=== PATIENT | male | born 1935 | race Caucasian/White ===

== ENCOUNTER → 2019-06-26 | Outpatient (CLI) | payer MEDICARE ==
[2019-06-29 16:09] LABS: ALBUM 3.3 g/dL (2.9-4.4); ALPHA 1 0.2 g/dL (0.0-0.4); BETA 1.2 g/dL (0.7-1.3); GAMMA 0.8 g/dL (0.4-1.8); PROTEIN TOTAL 6.5 g/dL (6.0-8.5)
[2019-06-29 18:09] LABS: ANA INTERP Negative (.)
== END | disposition home or self-care (01) ==
LOC: LAB 11:13
PROVIDERS: ATTEND Psychiatry & Neurology Neurology with Special Qualifications in Child Neurology
DX: G30.1 Alzheimer's disease with late onset (principal); G62.89 Other specified polyneuropathies; R29.898 Other symptoms and signs involving the musculoskeletal system; R26.9 Unspecified abnormalities of gait and mobility; R79.89 Other specified abnormal findings of blood chemistry
CPT/HCPCS: 36415; 82607; 82746; 82947; 84165; 84443; 85651; 86038

== ENCOUNTER → 2019-07-25 | Outpatient (CLI) | payer MEDICARE ==
--- NOTE | 2019-07-25 13:00 | KCIC ---
MRI Brain without contrast History: Alzheimer's, unsteady gait, right and left arm weakness Technique: Multiplanar, multisequential noncontrast MR imaging was performed of the brain. Comparison: None Findings: There is no evidence of recent infarct or cytotoxic edema. Ventricular size is within normal limits, mild generalized supratentorial atrophy.There is no significant midline shift, intraaxial mass effect, or focal abnormal extra-axial fluid collection. There is encephalomalacia with cortical involvement of the right frontal lobe with associated gliosis signified by T2 and FLAIR hyperintense signal. There is other multifocal moderate T2 and FLAIR hyperintense signal abnormality of the supratentorial parenchyma bilaterally. There is small old lacunar infarct of the inferior left basal ganglia. There is no significant hemosiderin deposition the brain parenchyma. There is preservation of the major intracranial flow-voids at the skull base. Mastoid air cells are mostly aerated, minimal thickening bilaterally.The cerebellar tonsils are normal in location. There is no significant abnormality of the pineal gland or pituitary gland. There is [id number] bilateral ethmoid air cell mucosal thickening. There is preserved marrow signal of the clivus. Impression: 1. There is no evidence of recent infarct or intracranial mass effect. There is mild generalized supratentorial atrophy. 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 Other multifocal moderate T2 and FLAIR hyperintense signal abnormality of the supratentorial parenchyma is nonspecific although probably due to chronic microvascular ischemic disease in a patient this age. 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 Electronically signed by: Raj Vincent MD (07/25/2019 12:57 PM) [id number]
== END | disposition home or self-care (01) ==
LOC: KCIC MRI 11:41
PROVIDERS: ATTEND Psychiatry & Neurology Neurology with Special Qualifications in Child Neurology
DX: G93.89 Other specified disorders of brain (principal); I63.81 Other cerebral infarction due to occlusion or stenosis of small artery; J34.89 Other specified disorders of nose and nasal sinuses; G30.1 Alzheimer's disease with late onset; R26.9 Unspecified abnormalities of gait and mobility
CPT/HCPCS: 70551